=== PATIENT | female | born 1985 | race Caucasian/White ===

== ENCOUNTER 2021-05-25 02:05 | Emergency (ER) | payer SELFPAY ==
[~2021-05-25] VITALS: Ht 165.1 cm; Wt 54.4 kg
[2021-05-25 02:10] VITALS: BP 111/62
[2021-05-25] MEDS ORDERED: AMOX-430 PO (03:13)
[2021-05-25] MEDS ORDERED: HYDR-3972 PO (03:13)
[2021-05-25] MEDS ORDERED: AMOX/CLAVULANATE 875 MG TABLET ONE (03:17)
[2021-05-25] MEDS ORDERED: HYDROCODONE/APAP 5/325MG TABLET ONE (03:17)
[2021-05-25] MEDS: AMOX/CLAVULANATE 875 MG TABLET PO ONE (03:25)
[2021-05-25] MEDS: HYDROCODONE/APAP 5/325MG TABLET PO ONE (03:25)
--- NOTE | 2021-05-25 03:25 | NUR ---
Patient discharged to home in stable condition. Written and verbal after care instructions given. Patient verbalizes understanding of instruction. Pt ambulatory with a steady gait
== END 2021-05-25 03:27 | disposition home or self-care (01) ==
LOC: ER 02:10
DX: S02.2XXA Fracture of nasal bones, initial encounter for closed fracture (principal); S20.219A Contusion of unspecified front wall of thorax, initial encounter; V43.52XA Car driver injured in collision with other type car in traffic accident, initial encounter; Y93.89 Activity, other specified; Y92.410 Unspecified street and highway as the place of occurrence of the external cause; Y99.8 Other external cause status
CPT/HCPCS: 70486-TC; 71045-TC

== ENCOUNTER 2022-01-11 15:52 | Emergency (ER) | payer BC ==
[~2022-01-11] VITALS: Ht 165.1 cm; Wt 53.5 kg
[~2022-01-11 15:52] MED LIST: AMOX-430 PO; HYDR-3972 PO
[2022-01-11 16:04] VITALS: BP 126/76
--- NOTE | 2022-01-11 16:10 | NUR ---
BIBS FOR COUGH SINCE AFTER SHE HAD COVID 19 AT THE END OF NOVEMBER. OXYGEN SATURATION IN ROOM AIR IS AT 99%. WILL CONTINUE TO MONITOR THE PATIENT.
[2022-01-11] MEDS ORDERED: ALBU18HF2 INH (17:35)
[2022-01-11] MEDS ORDERED: FLUT1DIS INH (17:35)
--- NOTE | 2022-01-11 17:45 | NUR ---
Patient discharged to home in stable condition. Written and verbal after care instructions given. Patient verbalizes understanding of instruction.
== END 2022-01-11 17:46 | disposition home or self-care (01) ==
LOC: ER 15:56
DX: R05.9 Cough, unspecified (principal); R09.82 Postnasal drip; Z86.16 Personal history of COVID-19; Z79.899 Other long term (current) drug therapy
CPT/HCPCS: 71045-TC; 84703-TC